=== PATIENT | male | born 1985 | race Caucasian/White ===

== ENCOUNTER → 2020-08-25 10:58 | Outpatient (CLI) | payer BC, SELFPAY ==
--- NOTE | ~2020-08-25 | US_ITS ---
EXAMINATION: US scrotum doppler DATE: 08/25/2020 11:22 INDICATION: Scrotal varices TECHNIQUE: Testicular sonogram utilizing grayscale and Doppler COMPARISON: None. FINDINGS: The right testis measures 3.9 x 3.2 x 2.6 cm. The left testis measures 4.1 x 2.8 x 1.9 cm. Symmetric normal grayscale appearance to both testes. There is normal vascular flow to both testes. The right e pididymis is normal with normal vascular flow. The left epididymis is normal with normal vascular didi w. There is no hydrocele. Mild bilateral varicoceles with borderline dilated veins measuring up to 2. 5-3 mm in maximal diameter with mild augmentation with Valsalva. IMPRESSION: 1. Mild bilateral varicoceles. Otherwise normal scrotal ultrasound. Reviewed, dictated and finalized at location A.
== END ==
PROVIDERS: Visit Provider Urology
DX: I86.1 Scrotal varices (principal)
CPT/HCPCS: 76870; 93976